=== PATIENT | female | born 1970 | race Caucasian/White ===

== ENCOUNTER → 2017-07-24 08:11 | Outpatient (CLI) | payer OTHER, SELFPAY ==
--- NOTE | 2017-07-24 | DI.RAD.S_ITS ---
PROCEDURE: XR LUMBAR SPINE 2-3V INDICATIONS: LOW BACK PAIN, OTHER CHRONIC PAIN TECHNIQUE: 3 views of the lumbar spine were acquired. COMPARISON: [facility], MR, L-SPINE WITHOUT CONTRAST, 03/19/2008, 10:07. FINDINGS: Bones: 5 [id number] vertebrae are present. Multilevel grade 1 retrolisthesis and grade 1 spondylolisthesis L4-L5. Endplate osteophytes indicate early disc degeneration. Moderate L4-L5 and L5-S1 facet joint arthropathy. No vertebral body compression fractures. No suspicious bony lesions. Soft tissues: Overlying bowel gas pattern is normal. No suspicious soft tissue calcifications. IMPRESSION: 1. Multilevel degenerative change within the lumbar spine. Dictated by: Tim Nunn [facility] Interpreted: Neeraj Duffy MD on 07/24/2017 at 8:42 Approved by: Neeraj Duffy M.D. on 07/24/2017 at 15:15
== END ==
PROVIDERS: PCP Physical Medicine & Rehabilitation; Visit Provider Registered Nurse
DX: M51.36 Other intervertebral disc degeneration, lumbar region (principal); M54.5 Low back pain; G89.29 Other chronic pain
CPT/HCPCS: 72100

== ENCOUNTER → 2019-03-05 14:25 | Outpatient (CLI) | payer OTHER, SELFPAY ==
--- NOTE | 2019-03-05 14:32 | DI.CT.S_ITS ---
PROCEDURE: CT UE RT WO CON INDICATIONS: Fracture of unspecified carpal bone, right wrist TECHNIQUE: Noncontrast 1 mm axial sections acquired through the carpal bones, with coronal and sagittal reformats. COMPARISON: None. FINDINGS: Image quality: Excellent. Bones: Examination of the right wrist shows impacted and slightly comminuted distal radial fracture with fracture line extending into radiocarpal joint space and up to 1 mm diastases at fracture site. Buckling of the lateral cortex of distal radial shaft is seen. Subtle sclerosis along fracture site is also noted. Subtle linear radiolucent line traversing distal portion of scaphoid is seen, a subtle nondisplaced scaphoid fracture cannot be excluded. There is no other fracture or dislocation. No suspicious intraosseous lesion. Mild osteoarthritic changes are noted involving scaphotrapezial joint and first CMC joint. Soft tissues: There is no gross muscle or soft tissue abnormality. Extensor and flexor tendons are grossly intact with no evidence of full thickness tendon rupture. No significant wrist joint effusion. IMPRESSION: 1. Impacted and slightly comminuted distal radial fracture with fracture line extending into radiocarpal joint space and up to 1 mm diastases at fracture sites. 2. Finding is suspicious for subtle nondisplaced fracture involving distal scaphoid waist. 3. Mild osteoarthritic changes along radial aspect of right wrist. Finding is more prominent at first CMC joint. Dictated by: Shadi Tong M.D. on 03/05/2019 at 15:13 Approved by: Shadi Tong M.D. on 03/05/2019 at 15:18
== END ==
PROVIDERS: Family Provider Registered Nurse; PCP Registered Nurse; Visit Provider Nurse Practitioner Family
DX: S52.501A Unspecified fracture of the lower end of right radius, initial encounter for closed fracture (principal); X58.XXXA Exposure to other specified factors, initial encounter
CPT/HCPCS: 73200

== ENCOUNTER → 2020-03-18 13:34 | Outpatient (CLI) | payer OTHER, SELFPAY ==
--- NOTE | 2020-03-18 | DI.MRI.S_ITS ---
PROCEDURE: MR CERVICAL SPINE WO CON INDICATIONS: Other spondylosis, cervical region TECHNIQUE: Noncontrast sagittal T1 spin echo and T2 fast spin echo, sagittal STIR, foraminal oblique sagittal T2 fast spin echo, and axial gradient echo or T2 fast spin echo through the cervical spine. COMPARISON: None. FINDINGS: Image quality: Excellent. Alignment and Curvature: Approximately 2 mm anterolisthesis of C4 on C5. Normal cervical vertebral body height and alignment otherwise. Bone Marrow: Marrow demonstrates normal overall signal. Spinal Cord: Visualized spinal cord has normal size and signal. No cerebellar tonsillar herniation. Regional Soft Tissues: No paravertebral masses. Prevertebral soft tissues are normal in thickness. C2-C3: Normal appearance. C3-C4: Normal appearance. C4-C5: No spinal canal stenosis. Facet and uncovertebral hypertrophy contribute to mild bilateral neural foraminal narrowing. C5-C6: No spinal canal stenosis. Facet and uncovertebral hypertrophy contribute to mild bilateral neural foraminal narrowing. C6-C7: No spinal canal stenosis. Facet and uncovertebral hypertrophy contribute to moderate right and mild left neural foraminal stenosis. C7-T1: No spinal canal or neural foraminal stenosis. IMPRESSION: Varying degrees of neural foraminal narrowing up to moderate on the right at C6-C7. Dictated by: Seth Elias M.D. on 03/18/2020 at 14:25 Approved by: Seth Elias M.D. on 03/18/2020 at 14:28
--- NOTE | 2020-03-18 | DI.RAD.S_ITS ---
PROCEDURE: XR SHOULDER RT MIN 2V INDICATIONS: RIGHT SHOULDER PAIN TECHNIQUE: 3 views of the shoulder were acquired. COMPARISON: None. FINDINGS: Bones: No fractures or dislocations. No suspicious bony lesions. Visualized ribs appear intact. Soft tissues: No suspicious soft tissue calcifications. Multiple surgical clips are noted overlying the right chest wall. IMPRESSION: No acute osseous abnormality. No visualized acute fracture or dislocation. However, if clinical concern and/or pain persist, short interval imaging followup in 7-10 days is recommended, as occult injury cannot be definitively excluded. Dictated by: Bethany Baeza M.D. on 03/18/2020 at 16:41 Approved by: Bethany Baeza M.D. on 03/18/2020 at 16:41
== END ==
PROVIDERS: Family Provider Registered Nurse; PCP Registered Nurse; Referring Provider Registered Nurse; Visit Provider Registered Nurse
DX: M47.892 Other spondylosis, cervical region (principal); M48.02 Spinal stenosis, cervical region; M25.511 Pain in right shoulder
CPT/HCPCS: 72141; 73030

== ENCOUNTER → 2020-08-24 11:51 | Outpatient (CLI) | payer OTHER, SELFPAY ==
--- NOTE | 2020-08-24 11:53 | DI.MRI.S_ITS ---
PROCEDURE: MR LUMBAR SPINE WO CON INDICATIONS: Other intervertebral disc degeneration TECHNIQUE: Noncontrast sagittal T1 spin echo and T2 fast echo, sagittal STIR, axial T1 and T2 fast spin echo through the lumbar spine. In cases with scoliosis, additional coronal T2 fast spin echo may be performed. COMPARISON: [facility], MR, L-SPINE WITHOUT CONTRAST, 03/19/2008, 10:07. FINDINGS: Image quality: Excellent. Alignment and Curvature: There is mild L4-L5 anterolisthesis secondary to facet hypertrophy. There is trace L2-L3 and L3-L4 retrolisthesis. Bone Marrow: Mild reactive endplate changes noted adjacent to the L1-L2 and L5-S1 discs. No acute vertebral body compression fractures. Spinal Cord: Conus medullaris terminates at the L2 level. Visualized cord demonstrates normal signal and size. Paraspinous Soft Tissues: No paravertebral masses. T12-L1: Normal appearance. L1-L2: Loss of disc signal and height. Moderate, diffuse disc bulge. Mild narrowing of the central canal. Mild bilateral neural foraminal narrowing. No neural compression. L2-L3: Loss of disc signal. Minimal, diffuse disc bulge. Mild bilateral facet hypertrophy. Mild narrowing of the central canal. Mild bilateral neural foraminal narrowing. No neural compression. L3-L4: Loss of disc signal. Minimal, diffuse disc bulge. Mild bilateral facet hypertrophy. Mild narrowing of the central canal. Mild bilateral neural foraminal narrowing. No neural compression. L4-L5: Loss of disc signal and height. Mild, diffuse disc bulge. Severe bilateral facet hypertrophy. Mild narrowing of the central canal. Moderate to severe bilateral neural foraminal narrowing with slight compression of the exiting L4 nerve roots. L5-S1: Loss of disc signal. Mild, diffuse disc bulge. Mild bilateral facet hypertrophy. No central stenosis. Moderate to severe bilateral neural foraminal narrowing with slight compression of the exiting L5 nerve roots. IMPRESSION: 1. Grade 1 L4-L5 degenerative spondylolisthesis. 2. Multilevel degenerative disc disease. 3. Multilevel facet arthropathy. 4. No severe central canal narrowing. 5. Moderate to severe bilateral L4-L5 and L5-S1 neural foraminal narrowing with slight compression of the exiting bilateral L4 and L5 nerve roots. Dictated by: Annita Dwyer MD, PhD on 08/24/2020 at 15:18 Approved by: Annita Dwyer MD, PhD on 08/24/2020 at 15:32
== END ==
PROVIDERS: Family Provider Registered Nurse; PCP Registered Nurse; Referring Provider Registered Nurse; Visit Provider Registered Nurse
DX: M51.36 Other intervertebral disc degeneration, lumbar region (principal); M51.37 Other intervertebral disc degeneration, lumbosacral region; M43.16 Spondylolisthesis, lumbar region; M47.816 Spondylosis without myelopathy or radiculopathy, lumbar region; M47.817 Spondylosis without myelopathy or radiculopathy, lumbosacral region; M48.061 Spinal stenosis, lumbar region without neurogenic claudication; M48.07 Spinal stenosis, lumbosacral region
CPT/HCPCS: 72148

== ENCOUNTER → 2020-09-24 10:19 | Outpatient (CLI) | payer OTHER, SELFPAY ==
--- NOTE | 2020-09-24 | DI.RAD.S_ITS ---
PROCEDURE: XR LUMBAR SPINE MIN 4V INDICATIONS: BACK PAIN TECHNIQUE: 5 views of the lumbar spine were acquired, including bilateral oblique views. COMPARISON: [facility], CR, XR LUMBAR SPINE 2-3V, 07/24/2017, 7:58. FINDINGS: Bones: Transitional lumbosacral vertebra. Please see the montage image for clarification of the spinal segmental level nomenclature used in this report and prior to any intervention. Grade 1 retrolisthesis of L1 on L2 and L2 on L3. Grade 1 retrolisthesis of L3 on L4 and L5 on S1. Grade 1 anterolisthesis of L4 on L5. Diffuse mild lumbar disc space narrowing, this appears slightly progressed since the prior study from 07/24/17. Dextro curvature of the lumbar spine. Soft tissues: Overlying bowel gas pattern is normal. No suspicious soft tissue calcifications. Oblique images: No pars defects. IMPRESSION: Slight interval progression in diffuse lumbar spondylosis and facet arthropathy since 07/24/17. Mild dextrocurvature Dictated by: Eliecer Flowers M.D. on 09/24/2020 at 13:49 Approved by: Eliecer Flowers M.D. on 09/24/2020 at 13:52
== END ==
PROVIDERS: Family Provider Registered Nurse; PCP Registered Nurse; Referring Provider Registered Nurse; Visit Provider Registered Nurse
DX: M47.26 Other spondylosis with radiculopathy, lumbar region (principal)
CPT/HCPCS: 72110

== ENCOUNTER → 2020-11-17 11:52 | Outpatient (CLI) | payer OTHER, SELFPAY ==
--- NOTE | 2020-11-17 | DI.MRI.S_ITS ---
BREAST MRI OF BOTH BREASTS: 11/17/2020 CLINICAL: Breast Cancer. TECHNIQUE: The patient was placed prone in a dedicated breast imaging coil. Precontrast axial STIR and 3D FLASH without fat saturation sequences were obtained. Both before and after bolus injection of contrast, sequential 1-minute axial 3D FLASH with fat saturation sequences for 3 time points, with subtraction images and maximum intensity projections (MIP's) generated. Delayed sagittal FLASH images with fat saturation were also obtained. Computer-aided detection, including computer algorithm analysis of MRI image data for lesion detection and characterization, pharmacokinetic analysis, with further physician review for interpretation, was performed. COMPARISON: Outside Facility, RG, MRI BREAST BILATERAL WITH AND WITHOUT CONTRAST WITH CAD, 12/22/2016, 11:11. [facility], , MM SCREENING MAMMO UNILAT LT, 11/17/2020, 12:16. Image quality: Excellent. There is mild background parenchymal enhancement. There is scattered fibroglandular tissue in the left breast. Right breast: Status post right mastectomy. No suspicious mass or enhancement in the surgical site. No suspicious adenopathy. Left breast: No mass, non-mass enhancement, or architectural distortion. No skin or nipple abnormalities. No axillary or internal mammary chain adenopathy. Miscellaneous: Visualized portions of the upper abdomen and chest appear unremarkable. IMPRESSION: NEGATIVE 1. Status post right mastectomy. No MRI evidence for malignancy. Recommend continued clinical surveillance/follow-up. 2. Left breast without MRI evidence for malignancy. Recommend continued annual screening mammography. COMMENT: The imaging literature indicates that a negative contrast breast MRI examination has a high sensitivity and a moderate specificity for detecting and excluding invasive carcinomas to a detection threshold of 3-5 mm; nonetheless, appropriate clinical and mammographic follow-up are recommended. MRI is not sensitive for detecting DCIS (ductal carcinoma in situ) and may not detect large invasive neoplasms that show only minimal enhancement such as mucinous carcinoma. If there are suspicious calcifications or clinically worrisome palpable masses, then biopsy should still be considered. Invasive neoplasms can be hidden by co-existent and benign enhancement caused by mastitis, hormone therapy effects, radiation therapy, , and recent biopsy or surgery. False positive examinations can occur in a number of circumstances, including breasts that have recently been subject to invasive procedures and those that contain atypical ductal hyperplasia, hormonally stimulated glandular tissue, fat necrosis, or radial scars. This exam was interpreted at Station ID: [id number]. Electronically Signed By: Ion Small M.D. aty/:11/17/2020 22:24:57 ACR BI-RADS Category 1: Negative 3341F
--- NOTE | 2020-11-17 | DI.MG.S_ITS ---
UNILATERAL LEFT DIGITAL SCREENING MAMMOGRAM 3D/2D WITH CAD: 11/17/2020 CLINICAL: Routine screening. Personal history of right breast cancer. Comparison is made to exams dated: 04/09/2018 mammogram, 12/22/2016 mammogram - [facility], 12/22/2016 breast MRI - [facility], 05/29/2013 mammogram - [facility], and 03/14/2011 mammogram - [facility]. There are scattered fibroglandular elements in left breast. Current study was also evaluated with a Computer Aided Detection (CAD) system. No significant masses, calcifications, or other findings are seen in the breast. There has been no significant interval change. IMPRESSION: NEGATIVE There is no mammographic evidence of malignancy. A 1 year screening mammogram is recommended. This exam was interpreted at Station ID: [id number]. NOTE: For mammograms, a report in lay terms will be sent to the patient. Approximately 15% of breast malignancies will not be visualized mammographically. In the management of a palpable breast mass, a negative mammogram must not discourage biopsy of a clinically suspicious lesion. Electronically Signed By: Ion law/kaitlyn:11/17/2020 13:11:08 letter sent: Normal Exam ACR BI-RADS Category 1: Negative [id number]
== END ==
PROVIDERS: Family Provider Registered Nurse; PCP Registered Nurse; Referring Provider Internal Medicine Hematology & Oncology; Visit Provider Internal Medicine Hematology & Oncology
DX: Z12.31 Encounter for screening mammogram for malignant neoplasm of breast (principal); C50.411 Malignant neoplasm of upper-outer quadrant of right female breast; Z90.11 Acquired absence of right breast and nipple
CPT/HCPCS: 77049; 77063; 77067; A9579

== ENCOUNTER 2021-02-25 08:24 | Outpatient (CLI) | payer OTHER, SELFPAY ==
[2021-02-25] VITALS (9 sets, daily range): BP systolic 116–140; BP diastolic 68–76; PULSE 77–95; RESP 10–19; TEMP 35.9; O2SAT 100
--- NOTE | 2021-02-25 08:25 | DI.RAD.S_ITS ---
PROCEDURE: PAIN L/S FACET INJ/BLK 1ST JAVIER COMPARISON: [facility], CR, XR LUMBAR SPINE MIN 4V, 09/24/2020, 11:22. [facility], MR, MR LUMBAR SPINE WO CON, 08/24/2020, 12:03. INDICATIONS: SPONDYLOSIS FINDINGS: Fluoroscopic spot filming was performed to verify placement of spinal needles on both sides at the L4-L5 and L5-S1 levels, as labeled on the films. Appropriate location of the needle tips was confirmed by injection of iodinated contrast. IMPRESSION: Intraprocedural examination within normal limits. Dictated by: Rito Chacko M.D. on 02/25/2021 at 9:33 Approved by: Rito Chacko M.D. on 02/25/2021 at 9:34
--- NOTE | 2021-02-25 08:50 | PC.NURSE ---
patient brought covid results done at [facility] on [address]. 02/22/21 12:13, not detected.
[2021-02-25] MEDS: fentaNYL 100 MCG/2 ML INJ 50 MCG IV (09:09)
[2021-02-25] MEDS: MIDAZOLAM 5 MG/5 ML VIAL IV (09:09)
[2021-02-25] MEDS: BETAMETHASONE 30 MG/5 ML MDV 12 MG INJ (09:11)
[2021-02-25] MEDS: BUPIVACAINE 0.5% (PF) VIAL 5 ML INJ (09:11)
[2021-02-25] MEDS: LIDOCAINE 1% 20 ML 10 ML INJ (09:11)
[2021-02-25] MEDS: IOPAMIDOL 15 ML VIAL 3 ML INJ (09:11)
--- NOTE | 2021-02-25 09:26 | P.PCN_ITS ---
Date/Time/Diagnoses Date of procedure: 02/25/21 Time of procedure: 09:26 Pre-procedure diagnosis: 1. FACET ARTHROPATHY 2. AXIAL LBP 3. MULTILEVEL DDD Post-procedure diagnosis: same Procedure Notes Procedure: 1. FLUOROSCOPICALLY GUIDED CONTRAST CONTROLLED FACET JOINT INJECTIONS BILATERAL L4/5, L5/S1 Indications: Liza is referred by XU Morris for treatment of Axial LBP Physician: Erasmo Rice Total Fluoroscopy time (seconds): 12 Total sedation minutes: 14 Complications: none Procedure in detail & Post-procedure care: FINDINGS Multilevel Facet Arthropathy with Clinically significant axial LBP DESCRIPTION OF PROCEDURE Fluoroscopically guided, contrast-controlled bilateral L4/5, L5/S1 facet joint injections. Following review of allergy and review of potential side effects and complications, including, but not necessarily limited to, infection, allergic reaction, local tissue breakdown, stroke, temporary or permanent nerve injury, paralysis, and possible , the patient indicated that the patient understood and agreed to proceed. An informed consent document was signed by the patient, witnessed by a nurse, and placed in the patient's chart. Additionally, other treatment options including medications, modalities, and physical therapy were reviewed with the patient. After review of previous anaesthesic history and IV conscious sedation the patient was deemed safe to proceed with today?s procedure with IV conscious sedation as ASA class II designation. Safety time-out was performed to confirm patient ID, procedure to be performed and site of procedure. IV sedation was accomplished with a combination of 3mg of Versed and 50mcg of Fentanyl was administered by the RN after DO order, titrated to patient comfort during the course of the procedure while the patient remained responsive to all verbal commands In the prone position, following sterile prep and drape of the lumbar region, the posterior aspect of the L4/5, L5/S1 facet joints were identified fluoroscopically. The skin was anesthetized via a 25-gauge 1.5inch needle with 1% lidocaine solution into the corresponding facet joints. At this point, a 22- gauge 3.5-inch spinal needle was atraumatically introduced and advanced under fluoroscopic guidance into the corresponding facet joints. Following negative aspiration, injections of approximately 0.2cc of Isovue 200 confirmed int erarticular placement without vascular uptake. The identical procedure was then performed at the L4/5, L5/S1 facet joints on the left. Radiological data, including multiple fluoroscopic views of the lumbosacral spine, reveal a spinal needle at the L4/5, L5/S1 facet joints bilaterally. Subsequent views show flow of contrast material both superiorly and inferiorly within the joint space without vascular or intrathecal uptake. At this point, a total of 0.5cc including a mixture of 0.25cc Marcaine and 0.25cc betamethasone was injected without complication into each of the corresponding facet joints. The patient tolerated the procedure well without signs or symptoms of complications prior to transfer to the recovery area continued monitoring without incident. The patient was then transferred to the recovery area where they were observed for an appropriate period of time after the injection. The patient reported a VAS score of 7 prior to the procedure and a post- procedure VAS of 0. POST OP INSTRUCTIONS The patient was provided a Pain Log to continue to record their response to the target-specific procedure prior to follow-up visit with their referring physician. Additionally, specific post-injection care instructions and a contact number to our office were provided if concerns arise regarding possible complications associated with the procedure are suspected.
== END 2021-02-25 09:50 | disposition home or self-care (01) ==
PROVIDERS: Family Provider Registered Nurse; PCP Registered Nurse; Referring Provider Physical Medicine & Rehabilitation; Visit Provider Physical Medicine & Rehabilitation
DX: M47.816 Spondylosis without myelopathy or radiculopathy, lumbar region (principal); M47.817 Spondylosis without myelopathy or radiculopathy, lumbosacral region; M51.36 Other intervertebral disc degeneration, lumbar region; M51.37 Other intervertebral disc degeneration, lumbosacral region
CPT/HCPCS: 64493; 64494; 99152; J0702; J2250; J3010

== ENCOUNTER 2021-05-27 09:55 | Outpatient (CLI) | payer OTHER, SELFPAY ==
[2021-05-27] VITALS (9 sets, daily range): BP systolic 105–128; BP diastolic 65–75; PULSE 80–92; RESP 12–20; TEMP 36.3; O2SAT 100
--- NOTE | 2021-05-27 10:01 | DI.RAD.S_ITS ---
PROCEDURE: PAIN L/S FACET INJ/BLK 1ST JAVIER COMPARISON: [facility], , PAIN L/S FACET INJ/BLK 1ST JAVIER, 02/25/2021, 10:12. INDICATIONS: SPONDYLOSIS FINDINGS: Fluoroscopic spot filming was performed to verify placement of spinal needles on both sides at the L4, L5, and S1 levels, as labeled on the films. Appropriate location of the needle tips was confirmed by injection of iodinated contrast. IMPRESSION: Intraprocedural examination demonstrating appropriate positions of the needles. Dictated by: Rito Chacko M.D. on 05/27/2021 at 11:37 Approved by: Rito Chacko M.D. on 05/27/2021 at 11:38
[2021-05-27 10:51] LABS: COVID19 -Nasal RAPID Negative (Negative)
[2021-05-27] MEDS: IOPAMIDOL 15 ML VIAL 3 ML INJ (11:59)
[2021-05-27] MEDS: BUPIVACAINE 0.5% (PF) VIAL 5 ML INJ (11:59)
[2021-05-27] MEDS: MIDAZOLAM 2 MG/2 ML VIAL (12:00)
[2021-05-27] MEDS: MIDAZOLAM 2 MG/2 ML VIAL IV (12:00)
[2021-05-27] MEDS: LIDOCAINE 1% 20 ML (12:00)
--- NOTE | 2021-05-27 12:09 | P.PCN_ITS ---
Date/Time/Diagnoses Date of procedure: 05/27/21 Time of procedure: 12:09 Pre-procedure diagnosis: 1. FACET ARTHROPATHY Post-procedure diagnosis: same Procedure Notes Procedure: 1. BILATERAL- L4, L5 and S1 DIAGNOSTIC MB BLOCKS with LA Anesthetic Indications: Liza is referred by XU Morris for treatment of Bilateral Axial LBP. Physician: Erasmo Rice Total Fluoroscopy time (seconds): 14 Total sedation minutes: 14 Complications: none Procedure in detail & Post-procedure care: DESCRIPTION OF PROCEDURE Fluoroscopically guided, contrast-controlled bilateral L4, L5 and S1 medial branch blocks with 0.5cc of 0.5% Marcaine. Following review of allergy and review of potential side effects and complications, including, but not necessarily limited to, infection, allergic reaction, local tissue breakdown, nerve injury, paralysis, stroke and possible , the patient indicated that the patient understood and agreed to proceed. An informed consent document was signed by the patient, witnessed by a nurse, and placed in the patient's chart. After review of previous anaesthesic history and IV conscious sedation the patient was deemed safe to proceed with today's procedure with IV conscious sedation as ASA class II designation. Safety time-out was performed to confirm patient ID, procedure to be performed and site of procedure. IV sedation was accomplished with a combination of 4mg of Versed was administered by the RN after DO order, titrated to patient comfort during the course of the procedure while the patient remained responsive to all verbal commands In the prone position, following sterile prep and drape of the lumbar region, the right L4, L5 and S1 anatomical location of the medial branch of the dorsal ramus was identified fluoroscopically. Subsequently an anesthetic skin wheal using 1% lidocaine solution was initiated at each of the anatomical spots. Subsequently then a 22-gauge 3.5-inch spinal needle was atraumatically introduced and advanced under fluoroscopic guidance at each of the corresponding sites at the right L4, L5 and S1 MB. After negative aspiration, 0.2cc of Isovue 200 was injected, confirming placement without vascular or intrathecal uptake. Subsequently then 0.5cc of 0.5% Marcaine solution was injected at each of the corresponding sites at the right L4, L5 and S1 medial branch locations. The identical procedure was replicated on the left. The patient tolerated the procedure well without signs or symptoms of complications prior to transfer to the recovery area continued monitoring without incident. Post-procedure, the patient was monitored initiating provocative activities to measure the amount of relief from block of the facetogenic pain. The patient reported a VAS of 7 prior to the procedure and a post-procedure VAS of 1. It has been a pleasure to assist in the diagnostic and therapeutic care of your patient. POST OP INSTRUCTIONS The patient was provided with a Pain Log to complete over the next several hours and subsequent days prior to the patient's follow up with the ordering physician. If the patient has template reproduction technician relief to the solution applied, then they may be a candidate for medial branch rhizotomy. The patient is aware, was provided, once again, with a Pain Log and will follow up with the referring physician for review and clinical correlation
== END 2021-05-27 12:20 | disposition home or self-care (01) ==
LOC: RAD 10:00
PROVIDERS: Family Provider Registered Nurse; PCP Registered Nurse; Referring Provider Physical Medicine & Rehabilitation; Visit Provider Physical Medicine & Rehabilitation
DX: M47.816 Spondylosis without myelopathy or radiculopathy, lumbar region (principal); M47.817 Spondylosis without myelopathy or radiculopathy, lumbosacral region; Z20.822 Contact with and (suspected) exposure to COVID-19
CPT/HCPCS: 64493; 64494; 87635; 99152; J2250

== ENCOUNTER 2021-06-24 10:27 | Outpatient (CLI) | payer OTHER, SELFPAY ==
[2021-06-24] VITALS (10 sets, daily range): BP systolic 111–132; BP diastolic 66–84; PULSE 74–90; RESP 11–18; TEMP 36.5; O2SAT 99–100
--- NOTE | 2021-06-24 10:30 | DI.RAD.S_ITS ---
PROCEDURE: PAIN L/S TRANSFORAM INJECT JAVIER COMPARISON: [facility], XA, PAIN L/S FACET INJ/BLK 1ST JAVIER, 02/25/2021, 10:12. Merged With [facility], XA, PAIN L/S FACET INJ/BLK 1ST JAVIER, 05/27/2021, 11:49. INDICATIONS: SPONDYLOSIS FINDINGS: Fluoroscopic spot filming was performed to verify placement of spinal needles on both sides at the L4-L5 level, as labeled on the films. Appropriate location of the needle tips was confirmed by injection of iodinated contrast. IMPRESSION: Intraprocedural examination demonstrating appropriate positions of the needles. Dictated by: Rito Chacko M.D. on 06/24/2021 at 11:45 Approved by: Rito Chacko M.D. on 06/24/2021 at 11:45
[2021-06-24 11:03] LABS: COVID19 -Nasal RAPID Negative (Negative)
[2021-06-24] MEDS: MIDAZOLAM 2 MG/2 ML VIAL IV (11:36)
[2021-06-24] MEDS: IOPAMIDOL 15 ML VIAL 3 ML INJ (11:38)
[2021-06-24] MEDS: DEXAMETHASONE 10 MG/ML VIAL 20 MG INJ (11:38)
[2021-06-24] MEDS: BETAMETHASONE 30 MG/5 ML MDV 12 MG INJ (11:38)
[2021-06-24] MEDS: BUPIVACAINE 0.25% (PF) VIAL 2 ML INJ (11:38)
[2021-06-24] MEDS: MIDAZOLAM 2 MG/2 ML VIAL (11:44)
--- NOTE | 2021-06-24 12:03 | PM.PROC.IR.1 ---
Date/Time/Diagnoses Date of procedure: 06/24/21 Time of procedure: 12:04 Pre-procedure diagnosis: 1. FORAMINAL STENOSIS WITH LE SYMPTOMS Procedure Notes Procedure: 1. FLUOROSCOPICALLY GUIDED CONTRAST CONTROLLED TRANSFORAMINAL EPIDURAL STEROID INJECTION - BILATERAL L4/5 TFESI Indications: Liza is referred by XU Morris for treatment of Foraminal Stenosis with bilateral LE Symptoms Physician: Erasmo Rice Total Fluoroscopy time (seconds): 31 Total sedation minutes: 22 Complications: none Procedure in detail & Post-procedure care: FINDINGS Foraminal Nerve Root Compression secondary to disc disease and facet hypertrophy DESCRIPTION OF PROCEDURE Following review of allergy and review of potential side effects and complications, including, but not necessarily limited to, infection, allergic reaction, local tissue breakdown, stroke, temporary or permanent nerve injury, paralysis, and possible , the patient indicated that the patient understood and agreed to proceed. An informed consent document was signed by the patient, witnessed by a nurse, and placed in the patient's chart. Additionally, other treatment options including medications, modalities, and physical therapy were reviewed with the patient. After review of previous anaesthesic history and IV conscious sedation the patient was deemed safe to proceed with today?s procedure with IV conscious sedation as ASA class II designation. Safety time-out was performed to confirm patient ID, procedure to be performed and site of procedure. IV sedation was accomplished with a combination of 4mg of Versed was administered by the RN after DO order, titrated to patient comfort during the course of the procedure while the patient remained responsive to all verbal commands In the prone position following sterile prep and drape of the lumbar region, the right L4/5 posterior neuroforamen was identified fluoroscopically. The skin was anesthetized via a 25-gauge 1.5-inch needle with 1% lidocaine solution. At this point, a 25-gauge 3.5-inch spinal needle was atraumatically introduced and advanced under fluoroscopic guidance through the posterior right L4/5 neuroforamen to approximately the anterior aspect of the canal. Depth was confirmed on lateral view. Following negative aspiration, injection of approximately 1.5cc of Isovue 200 under live fluoroscopy in the AP view confirmed excellent flow along the nerve root, into the epidural space without vascular or intrathecal uptake observed Radiological data, including multiple fluoroscopic views of the lumbosacral spine, reveal a spinal needle at the right L4/5 posterior neuroforamen. Subsequent views show flow of contrast material flowing superiorly and inferiorly along the nerve root confirming epidural flow. Subsequently, a test dose of 1.5cc of 1% lidocaine solution was administered and patient was observed for two minutes for signs or symptoms of complications, including abdominal pain, shortness of breath, bilateral upper or lower extremity weakness, nausea and vomiting, prior to steroid injection. At this point, a total of 3cc or 20mg of dexamethasone and 6mg betamethasone was injected without incident. Attention was then refocused to the left L4/5 level where the identical procedure was replicated. The procedure tolerated the procedure well without signs or symptoms of complications prior to transfer to the recovery area continued monitoring without incident. The patient was then transferred to the recovery area where they were observed for an appropriate time after the injection. The patient reported a VAS score of 7 prior to the procedure and a post-procedure VAS of 0. POST OP INSTRUCTIONS The patient was provided a Pain Log to continue to record their response to the target-specific procedure prior to follow-up visit with their referring physician. Additionally, specific post-injection care instructions and a contact number to our office were provided if concerns arise regarding possible complications associated with the procedure are suspected.
== END 2021-06-24 12:28 | disposition home or self-care (01) ==
LOC: RAD 10:29
PROVIDERS: Family Provider Registered Nurse; PCP Registered Nurse; Referring Provider Physical Medicine & Rehabilitation; Visit Provider Physical Medicine & Rehabilitation
DX: M48.061 Spinal stenosis, lumbar region without neurogenic claudication (principal); M51.16 Intervertebral disc disorders with radiculopathy, lumbar region; Z20.822 Contact with and (suspected) exposure to COVID-19
CPT/HCPCS: 64483; 87635; 99152; J0702; J1100; J2250

== ENCOUNTER 2021-11-02 15:02 | Outpatient (CLI) | payer OTHER, SELFPAY ==
[2021-11-02] VITALS (8 sets, daily range): BP systolic 115–137; BP diastolic 67–76; PULSE 83–95; RESP 13–20; TEMP 36.2; O2SAT 97–100
--- NOTE | 2021-11-02 15:04 | DI.RAD.S_ITS ---
PROCEDURE: PAIN L/S TRANSFORAMINAL INJECT INDICATIONS: SPONDYLOSIS COMPARISON: [facility], XA, PAIN L/S TRANSFORAM INJECT JAVIER, 06/24/2021, 11:39. [facility], XA, PAIN L/S FACET INJ/BLK 1ST JAVIER, 05/27/2021, 11:49. [facility], XA, PAIN L/S FACET INJ/BLK 1ST JAVIER, 02/25/2021, 10:12. FINDINGS: Fluoroscopic spot filming was performed to verify placement of a spinal needle at the L5-S1 level, as labeled on the films. Appropriate location of the needle tip was confirmed by injection of iodinated contrast. IMPRESSION: No significant intraprocedural abnormality. Dictated by: Rito Chacko M.D. on 11/05/2021 at 11:47 Approved by: Rito Chacko M.D. on 11/05/2021 at 11:47
[2021-11-02 15:58] LABS: COVID19 -Nasal RAPID Negative (Negative)
[2021-11-02] MEDS: MIDAZOLAM 2 MG/2 ML VIAL IV (16:16)
[2021-11-02] MEDS: BETAMETHASONE 30 MG/5 ML MDV 6 MG INJ (16:21)
[2021-11-02] MEDS: IOPAMIDOL 15 ML VIAL 3 ML INJ (16:21)
[2021-11-02] MEDS: BUPIVACAINE 0.25% (PF) VIAL 2 ML INJ (16:22)
[2021-11-02] MEDS: DEXAMETHASONE 10 MG/ML VIAL 20 MG INJ (16:22)
--- NOTE | 2021-11-02 16:33 | P.PCN_ITS ---
Date/Time/Diagnoses Date of procedure: 11/02/21 Time of procedure: 16:33 Pre-procedure diagnosis: 1. FORAMINAL STENOSIS WITH LE SYMPTOMS Post-procedure diagnosis: same Procedure Notes Procedure: 1. FLUOROSCOPICALLY GUIDED CONTRAST CONTROLLED TRANSFORAMINAL EPIDURAL STEROID INJECTION - Left L5/S1 Indications: Liza is referred by XU Morris for treatment of Foraminal Stenosis with Left LE Symptoms Physician: Erasmo Rice Total Fluoroscopy time (seconds): 12 Total sedation minutes: 13 Complications: none Procedure in detail & Post-procedure care: FINDINGS Foraminal Nerve Root Compression secondary to disc disease and facet hypertrophy DESCRIPTION OF PROCEDURE Following review of allergy and review of potential side effects and complications, including, but not necessarily limited to, infection, allergic reaction, local tissue breakdown, stroke, temporary or permanent nerve injury, paralysis, and possible , the patient indicated that the patient understood and agreed to proceed. An informed consent document was signed by the patient, witnessed by a nurse, and placed in the patient's chart. Additionally, other treatment options including medications, modalities, and physical therapy were reviewed with the patient. After review of previous anaesthesic history and IV conscious sedation the patient was deemed safe to proceed with today?s procedure with IV conscious sedation as ASA class II designation. Safety time-out was performed to confirm patient ID, procedure to be performed and site of procedure. IV sedation was accomplished with a combination of 2mg of Versed was administered by the RN after DO order, titrated to patient comfort during the course of the procedure while the patient remained responsive to all verbal commands In the prone position following sterile prep and drape of the lumbar region, the Left L5/S1 posterior neuroforamen was identified fluoroscopically. The skin was anesthetized via a 25-gauge 1.5-inch needle with 1% lidocaine solution. At this point, a 25-gauge 3.5-inch spinal needle was atraumatically introduced and advanced under fluoroscopic guidance through the posterior Left L5/S1 neuroforamen to approximately the anterior aspect of the canal. Depth was confirmed on lateral view. Following negative aspiration, injection of approximately 1.5 cc of Isovue 200 under live fluoroscopy in the AP view confir med excellent flow along the nerve root, into the epidural space without vascular or intrathecal uptake observed Radiological data, including multiple fluoroscopic views of the lumbosacral spine, reveal a spinal needle at the Left L5/S1 posterior neuroforamen. Subsequent views show flow of contrast material flowing superiorly and inferiorly along the nerve root confirming epidural flow. Subsequently, a test dose of 1.5 cc of 1% lidocaine solution was administered and patient was observed for two minutes for signs or symptoms of complications, including abdominal pain, shortness of breath, bilateral upper or lower extremity weakness, nausea and vomiting, prior to steroid injection. At this point, a total of 3cc or 20mg of dexamethasone and 6mg of betamethasone was injected without incident. The procedure tolerated the procedure well without signs or symptoms of complications prior to transfer to the recovery area continued monitoring without incident. The patient was then transferred to the recovery area where they were observed for an appropriate time after the injection. The patient reported a VAS score of 7 prior to the procedure and a post-procedure VAS of 0. POST OP INSTRUCTIONS The patient was provided a Pain Log to continue to record their response to the target-specific procedure prior to follow-up visit with their referring phy sician. Additionally, specific post-injection care instructions and a contact number to our office were provided if concerns arise regarding possible complications associated with the procedure are suspected.
== END 2021-11-02 16:50 | disposition home or self-care (01) ==
LOC: RAD 15:04
PROVIDERS: Family Provider Registered Nurse; PCP Registered Nurse; Referring Provider Physical Medicine & Rehabilitation; Visit Provider Physical Medicine & Rehabilitation
DX: M48.07 Spinal stenosis, lumbosacral region (principal); M51.17 Intervertebral disc disorders with radiculopathy, lumbosacral region; Z20.822 Contact with and (suspected) exposure to COVID-19
CPT/HCPCS: 64483; 87635; 99152; J0702; J1100; J2250; J3490

== ENCOUNTER → 2021-11-18 08:38 | Outpatient (CLI) | payer OTHER, SELFPAY ==
--- NOTE | 2021-11-18 08:40 | DI.MRI.S_ITS ---
PROCEDURE: MR BREAST BI WO/W CON INDICATIONS: Routine Sreening;Ostepenia;Estrogen receptor + TECHNIQUE: The patient was placed prone in a dedicated breast imaging coil. Precontrast axial STIR and 3D FLASH without fat saturation sequences were obtained. Both before and after bolus injection of contrast, sequential 1-minute axial 3D FLASH with fat saturation sequences for 3 time points, with subtraction images and maximum intensity projections (MIP's) generated. Delayed sagittal FLASH images with fat saturation were also obtained. Computer-aided detection, including computer algorithm analysis of MRI image data for lesion detection and characterization, pharmacokinetic analysis, with further physician review for interpretation, was performed. COMPARISON: [facility], MR, MR BREAST BI WO/W CON, 11/17/2020, 12:27. FINDINGS: Image quality: Excellent. There is minimal background parenchymal enhancement. Right breast: Status post right mastectomy. No suspicious enhancement. No suspicious mass or adenopathy. Left breast: No suspicious mass, non-mass enhancement, or focus. No adenopathy. Miscellaneous: No suspicious findings outside the breast tissue, partially visualized. IMPRESSION: No MRI evidence of malignancy. Status post right mastectomy without evidence of adenopathy or local recurrence. Recommend continued screening mammography and MRI. The COMMENT: The imaging literature indicates that a negative contrast breast MRI examination has a high sensitivity and a moderate specificity for detecting and excluding invasive carcinomas to a detection threshold of 3-5 mm; nonetheless, appropriate clinical and mammographic follow-up are recommended. MRI is not sensitive for detecting DCIS (ductal carcinoma in situ) and may not detect large invasive neoplasms that show only minimal enhancement such as mucinous carcinoma. If there are suspicious calcifications or clinically worrisome palpable masses, then biopsy should still be considered. Invasive neoplasms can be hidden by co-existent and benign enhancement caused by mastitis, hormone therapy effects, radiation therapy, , and recent biopsy or surgery. False positive examinations can occur in a number of circumstances, including breasts that have recently been subject to invasive procedures and those that contain atypical ductal hyperplasia, hormonally stimulated glandular tissue, fat necrosis, or radial scars. Dictated by: Ralph Kaminski M.D. on 11/18/2021 at 16:04 Approved by: Ralph Kaminski M.D. on 11/18/2021 at 16:12
--- NOTE | 2021-11-18 08:40 | DI.MG.S_ITS ---
UNILATERAL LEFT DIGITAL SCREENING MAMMOGRAM 3D/2D WITH CAD: 11/18/2021 CLINICAL: Routine screening. Personal history of right breast cancer. Comparison is made to exams dated: 11/18/2021 breast MRI, 11/17/2020 breast MRI, 11/17/2020 mammogram - [facility], and 04/09/2018 mammogram - [facility]. There are scattered areas of fibroglandular density in the left breast (category b / 25%-50% glandular tissue). Current study was also evaluated with a Computer Aided Detection (CAD) system. No significant masses, calcifications, or other findings are seen in the breast. There has been no significant interval change. IMPRESSION: NEGATIVE There is no mammographic evidence of malignancy. A 1 year screening mammogram is recommended. This exam was interpreted at Station ID: [id number]. NOTE: For mammograms, a report in lay terms will be sent to the patient. Approximately 15% of breast malignancies will not be visualized mammographically. In the management of a palpable breast mass, a negative mammogram must not discourage biopsy of a clinically suspicious lesion. Electronically Signed By: Ralph lea/kaitlyn:11/18/2021 11:56:33 letter sent: Normal Exam ACR BI-RADS Category 1: Negative [id number]
== END ==
PROVIDERS: Family Provider Registered Nurse; PCP Registered Nurse; Referring Provider Internal Medicine Hematology & Oncology; Visit Provider Internal Medicine Hematology & Oncology
DX: C50.411 Malignant neoplasm of upper-outer quadrant of right female breast (principal); Z17.0 Estrogen receptor positive status [ER+]; Z90.11 Acquired absence of right breast and nipple; Z12.31 Encounter for screening mammogram for malignant neoplasm of breast; Z13.820 Encounter for screening for osteoporosis; M85.88 Other specified disorders of bone density and structure, other site; Z78.0 Asymptomatic menopausal state
CPT/HCPCS: 77049; 77063; 77067; 77080; A9579

== ENCOUNTER 2022-03-08 10:37 | Outpatient (CLI) | payer OTHER, SELFPAY ==
[2022-03-08] VITALS (14 sets, daily range): BP systolic 81–145; BP diastolic 47–89; PULSE 56–99; RESP 12–20; TEMP 36.1; O2SAT 97–100
--- NOTE | 2022-03-08 10:38 | DI.RAD.S_ITS ---
PROCEDURE: PAIN L/S MED/LAT N RFA BILAT INDICATIONS: SPONDYLOSIS COMPARISON: None. FINDINGS: Fluoroscopic spot filming was performed to verify placement of spinal needles at the bilateral L4, L5 and S1 neural foramina. level(s), as labeled on the films. Appropriate location(s) of the needle tip(s) was confirmed by injection of iodinated contrast. IMPRESSION: Access needles at the bilateral L4, L5 and S1 neural foramina for bilateral L4, L5 and S1 medial branch rhizotomy. Dictated by: Annita Dwyer MD, PhD on 03/08/2022 at 13:56 Approved by: Annita Dwyer MD, PhD on 03/08/2022 at 13:57
[2022-03-08] MEDS: MIDAZOLAM 2 MG/2 ML VIAL IV (11:55)
[2022-03-08] MEDS: LIDOCAINE 1% (PF) 5 ML INJ (12:01)
[2022-03-08] MEDS: BUPIVACAINE 0.5% MDV 5 ML SUBCUT (12:01)
--- NOTE | 2022-03-08 12:46 | P.PCN_ITS ---
Date/Time/Diagnoses Date of procedure: 03/08/22 Time of procedure: 12:46 Pre-procedure diagnosis: 1. RECALCITRANT FACET ARTHROPATHY Post-procedure diagnosis: same Procedure Notes Procedure: 1. BILATERAL L4 AND L5 MEDIAL BRANCH RADIOFREQUENCY NEUROTOMY AND S1 DORSAL RAMUS BRANCH RADIOFREQUENCY NEUROTOMY Indications: Liza is referred by XU Morris for treatment of facet arthropathy. Physician: Erasmo Rice Total Fluoroscopy time (seconds): 20 Total sedation minutes: 45 Complications: none Procedure in detail & Post-procedure care: DESCRIPTION OF PROCEDURE Bilateral L4 and L5 medial branch radiofrequency neurotomy and bilateral S1 dorsal ramus radiofrequency neurotomy under fluoroscopy with conscious sedation. The patient is well known to this clinic having undergone previous facet injections with good but temporary relief. The patient has experienced appropriate, concordant relief with previous facet and median branch blocks but the patient's pain has been recalcitrant to further conservative measures. Therefore, based upon the patient's relief and persistent symptoms, the patient is considered an appropriate candidate for facet rhizotomy. All of the patient's questions regarding the risks versus benefits of the procedure, including, but not limited to, bleeding, infection, temporary as well as lasting nerve injury, paralysis, stroke, and , as well treatment alternatives were answered to satisfaction. After obtaining informed consent, denial of pertinent drug allergies, as well as being made aware of the potential risks of bleeding, infection, spinal cord trauma, paralysis, temporary and permanent nerve damage, seizure, stroke, and possible , the patient was brought to the fluoroscopy suite and positioned prone on the fluoroscopy table. The lumbar region was prepped with Betadine and covered with a fenestrated drape in the usual sterile fashion. Appropriate monitors applied including pulse oximeter, pulse, and blood pressure for regular monitoring throughout the procedure. After review of previous anaesthesic history and IV conscious sedation the patient was deemed safe to proceed with today's procedure with IV conscious sedation as ASA class II designation. Safety time-out was performed to confirm patient ID, procedure to be performed and site of procedure. IV sedation was accomplished with a combination of 4mg of Versed administered by the RN after DO order, titrated to patient comfort during the course of the procedure while the patient remained responsive to all verbal commands. After local infiltration using 1% lidocaine, under fluoroscopic guidance, a 10- cm RF insulated needle with a 10-mm active tip was positioned parallel to the junction of the right sacral ala and the superior articulating process where the S1 dorsal ramus resides. Needle placement was confirmed with motor stimulation of .5v on the right which produced local stimulation without radicular component. The stimulation was then increased to 2v with, once again, only local multifidus stimulation without radicular component. The needle was then removed and the identical procedure was performed along the length of the right L5 medial branch with motor stimulation at .7v on the right. The identical procedure was once again performed along the length of the right L4 medial branch with motor stimulation of .5v on the right. The medial branches were then anesthetised with 0.5% Marcaine. This was then followed by two discreet lesions performed at 80 degrees Celsius for 90 seconds each. The identical procedure was repeated on the left. The patient tolerated the procedure well without signs or symptoms of complications prior to transfer to the recovery area continued monitoring without incident. The patient was then transferred to the recovery area where they were observed for an appropriate period of time after the injection. The patient reported a VAS score of 9 prior to the procedure and a post-procedure VAS of 0. POST OP INSTRUCTIONS The patient was provided a Pain Log to continue to record the patient's response to the target-specific procedure prior to the patient's follow-up visit with the referring physician. Additionally, specific post-injection care instructions and a contact number to our office were provided if concerns arise regarding possible complications associated with the procedure are suspected.
== END 2022-03-08 13:00 | disposition home or self-care (01) ==
PROVIDERS: Family Provider Registered Nurse; PCP Registered Nurse; Referring Provider Physical Medicine & Rehabilitation; Visit Provider Physical Medicine & Rehabilitation
DX: M47.816 Spondylosis without myelopathy or radiculopathy, lumbar region (principal); M47.817 Spondylosis without myelopathy or radiculopathy, lumbosacral region
CPT/HCPCS: 64635; 64636; 99152; 99153; J2250

== ENCOUNTER → 2023-11-28 07:35 | Outpatient (CLI) | payer OTHER, SELFPAY ==
--- NOTE | 2023-11-28 07:39 | DI.RAD.S_ITS ---
PROCEDURE: XR SHOULDER RT MIN 2V INDICATIONS: SHOULDER PAIN TECHNIQUE: 3 views of the shoulder were acquired. COMPARISON: [facility], CR, XR SHOULDER RT MIN 2V, 03/18/2020, 13:44. FINDINGS: Bones: No fractures or dislocations. Very mild acromioclavicular joint osteoarthritic changes are seen with slight joint space narrowing and subchondral sclerosis. No suspicious bony lesions. Visualized ribs appear intact. Soft tissues: No suspicious soft tissue calcifications. IMPRESSION: Very mild right acromioclavicular joint osteoarthritis. No shoulder fracture or dislocation. No gross soft tissue abnormalities. Dictated by: Shadi Tong M.D. on 11/28/2023 at 11:25 Approved by: Shadi Tong M.D. on 11/28/2023 at 11:28
== END ==
LOC: RAD 07:37
PROVIDERS: Family Provider Registered Nurse; PCP Nurse Practitioner Family; Referring Provider Nurse Practitioner Family; Visit Provider Nurse Practitioner Family
DX: M25.511 Pain in right shoulder (principal); G89.29 Other chronic pain
CPT/HCPCS: 73030

== ENCOUNTER → 2024-09-05 08:15 | Outpatient (CLI) | payer OTHER, SELFPAY ==
--- NOTE | 2024-09-05 08:17 | DI.MG.S_ITS ---
MM screening mammo unilat LT: 09/05/2024. BI-RADS: 1 CLINICAL: 53-year old female for left screening mammogram. No Tyrer-Cuzick risk score calculation due to the patient's personal history of breast cancer. Patient reports a history of right breast carcinoma diagnosed at age 40. Status-post right mastectomy with radiation therapy, chemotherapy and hormonal therapy. PRIOR EXAMS 11/18/2021, 11/17/2020. MAMMOGRAPHY TECHNIQUE: 2D and 3D (tomosynthesis) digital mammographic views obtained, with additional images as needed for full coverage. Current study was also evaluated with a Computer Aided Detection (CAD) system. DENSITY Left: B. There are scattered areas of fibroglandular density. MAMMOGRAPHY FINDINGS Left: No suspicious mass, asymmetry, microcalcification, or other abnormality seen. IMPRESSION: Left * No evidence of malignancy. RECOMMENDATIONS Left * Annual screening mammography. OVERALL ASSESSMENT CATEGORY BI-RADS-1: Negative. The [employer] recommends annual screening mammography beginning at age 40 for women with average risk of breast cancer. ELECTRONICALLY SIGNED: Cyndi Carver M.D. on 09/05/2024 at 08:48:00 AM PT Interpreting Station ID: [id number]
== END ==
LOC: MAMMO 08:16
PROVIDERS: Family Provider Registered Nurse; PCP Nurse Practitioner Family; Referring Provider Nurse Practitioner Family; Visit Provider Nurse Practitioner Family
DX: Z12.31 Encounter for screening mammogram for malignant neoplasm of breast (principal); Z85.3 Personal history of malignant neoplasm of breast; Z90.11 Acquired absence of right breast and nipple
CPT/HCPCS: 77063; 77067